=== PATIENT | female | born 1985 | race Caucasian/White ===

== ENCOUNTER 2018-07-19 18:15 | Emergency (ER) | payer OTHER ==
[~2018-07-19 18:15] MED LIST: DOCU-416 PO; NORE0.3521 PO; OXYC-854 PO; PNV1TABL24 PO
[2018-07-19 18:19] VITALS: BP 133/101
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
[2018-07-19] MEDS ORDERED: ACET/HYDROC 5/325MG TH ER ONLY 2 TAB/BOTTLE PO ONE (19:25)
[2018-07-19] MEDS ORDERED: DIPHTH/TETANUS/ACEL. PERTUSSIS IM ONLY ONE (19:25)
[2018-07-19] MEDS ORDERED: LOR5/325 PO (19:28)
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
== END 2018-07-19 19:41 | disposition home or self-care (01) ==
LOC: ER 18:30
DX: S50.02XA Contusion of left elbow, initial encounter (principal); S09.90XA Unspecified injury of head, initial encounter; V89.2XXA Person injured in unspecified motor-vehicle accident, traffic, initial encounter
CPT/HCPCS: 90471; 90715; 99283